=== PATIENT | female | born 1995 | race Caucasian/White ===

== ENCOUNTER → 2017-11-19 04:00 | Observation (INO) ==
[2017-11-19 02:16] LABS: Bilirubin,Urine Negative (Negative); Blood,Urine Negative (Negative); Clarity,Urine Cloudy (Clear); Color,Urine Yellow (Yellow); Glucose,Urine (UA) Normal (Normal); Ketones,Urine Trace mg/dL (Negative); Leukocyte Esterase,Urine Trace (Negative); Nitrite,Urine Negative (Negative); Protein,Urine Negative (Neg-Trace); Specific Gravity,Urine 1.015 (1.010-1.025); Urobilinogen,Urine Normal (Normal)
[2017-11-19 02:20] LABS: Bacteria,Urine None Seen per hpf (None-Few); Hyaline Casts,Urine None Seen per lpf (None-Few); RBC,Urine 0-3 per hpf (0-3); Squamous Epithelial Cell,Urine Many per lpf (None-Few)
[2017-11-19 02:24] LABS: Amphetamine Screen,Urine Negative ng/mL (Cutoff=1000); Barbiturate Screen,Urine Negative ng/mL (Cutoff=200); Benzodiazepines Screen,Urine Negative ng/mL (Cutoff=200); Cannabinoid Screen,Urine Negative ng/mL (Cutoff = 50); Cocaine Screen,Urine Negative ng/mL (Cutoff= 300); Opiate Screen,Urine Negative ng/mL (Cutoff=300); Phencyclidine Screen,Urine Negative ng/mL (Cutoff=25)
--- NOTE | 2017-11-19 02:41 | OB/GYN Progress Note ---
Date of Encounter: 11/19/17 Time of Encounter: 02:36 - Assessment and Plan (1) Back pain affecting in third trimester Current Visit: Yes Status: Acute Pain: - UA negative for UTI, showed mild dehydration - [place] showed irregular uterine contractions - FHT reactive, accelerations present - encouraged hydration - serial cervix exam, unchanged and patient states back pain is improved and she feels occasional abd. tightening, but no pain or contractions - Pt safe for discharge home, with labor precautions, when to return to triage or call provider. Pt verbalizes understanding. (2) 32 weeks gestation of Current Visit: Yes Status: Acute (3) NST (non-stress test) reactive Current Visit: Yes Status: Acute FHR baseline= 140, accelerations present Subjective - Subjective Principal diagnosis: back pain Interval history: Petty is a 22 y/o female at 32+6 weeks presented to L&D for back pain and contractions. Patient states that her back pain is in in her lumbar region and is constant. She has had constant pain for the last 2 days with intermittent worsening of pain for about 30 seconds but not frequent. Patient is concerned that she is in labor. No hx of kidney stones. Denies sexual intercourse within the last 48 hrs. Denies fevers, chills, N/V, dysuria, changes in vision, PEREZ. No complications. Reports active movement. Denies vaginal bleeding or loss of fluid. Antepartum ROS: movement normal, contractions, no loss of fluid, no vaginal bleeding Objective - Vital Signs Vital Signs: wnl Intake and Output 11/18/17 11/18/17 11/19/17 15:59 23:59 07:59 Other: Weight 81.2 kg Patient Weight 11/19/17 23:59 Weight 81.2 kg - Exam FHR: category 1 FHR comments: FHR [id number] Auscultation: bilateral: normal Abdomen: Present: normal appearance, soft Uterus: Present: normal, firm Cervical dilation: 1cm Cervix effacement: thick station: high - Labs Labs: Abnormal lab results Urine Clarity Cloudy (Clear) A 11/19/17 02:12 Urine Ketones Trace mg/dL (Negative) H 11/19/17 02:12 Ur Leukocyte Esterase Trace (Negative) H 11/19/17 02:12 Urine Microscopic WBC 5-15 per hpf (0-3) H 11/19/17 02:12 Ur Squamous Epith Cells Many per lpf (None-Few) H 11/19/17 02:12
== END | disposition home or self-care (01) ==
LOC: 1NENULAB
PROVIDERS: ADMIT Obstetrics & Gynecology; ATTEND Obstetrics & Gynecology

== ENCOUNTER 2018-01-02 08:24 | Inpatient (IN) ==
[~2018-01-02 08:24] MED LIST: *HR* Nalbuphine 20 MG/ML AMPUL IVP PRN; Famotidine 20 MG/2 ML VIAL IVP PRN; Lidocaine 1% 20 ML MDV INFILT PRN; Metoclopramide 10 MG/2 ML VIAL IVP PRN; Naloxone 0.4 MG/ML INJ IVP PRN; Ondansetron 4 MG/2 ML VIAL IVP PRN
[2018-01-02] MEDS ORDERED: Ringers Solution, Lactated 1,000 ML IVC SCH (08:30)
[2018-01-02] MEDS ORDERED: D5% in Lactated Ringers 1,000 ML IVC SCH (08:30)
[2018-01-02 08:40] LABS: Basophils % 0.3 %; Eosinophils # 0.2 K/mcL (0.0-0.6); Eosinophils % 1.1 %; Hematocrit 34.5 % (35.3-44.9); Hemoglobin 11.4 g/dL (11.5-15.4); Lymphocytes % 12.9 %; Mean Corpuscular Hemoglobin 28.4 pg (28.0-33.3); Mean Corpuscular Volume 85.8 fL (83.0-100.0); Mean Platelet Volume 11.7 fL (9.4-12.4); Monocytes # 1.1 K/mcL (0.0-1.3); Monocytes % 7.2 %; Neutrophils # 11.9 K/mcL (1.6-8.9); Nucleated Red Blood Cells 0.1 /100 WBC (0); Platelet Count 322 K/mcL (140-400); Red Blood Count 4.02 M/mcL (3.82-4.97); Red Cell Distribution Width 13.4 % (11.5-14.5); Segmented Neutrophils % 77.5 %
[2018-01-02] MEDS ORDERED: Oxytocin 20 units/ LR 1000 mL 20 UNIT/1,000 ML BAG IVC ONE (08:59)
[2018-01-02] MEDS ORDERED: Measles/Mumps/Rubella Vacc 0.5 ML VIAL SQ PRN ×2 (10:04→12:42)
[2018-01-02] MEDS ORDERED: Ibuprofen 600 MG TABLET PO PRN ×2 (10:04→12:42)
[2018-01-02] MEDS ORDERED: Acetaminophen 325 MG TABLET PO PRN ×2 (10:04→12:42)
[2018-01-02] MEDS ORDERED: Benzocaine/Menthol 56 GM AEROSOL SPRAY TP PRN (10:04)
[2018-01-02] MEDS ORDERED: Oxytocin 20 units/ LR 1000 mL 20 UNIT/1,000 ML BAG IVC SCH ×2 (10:15→12:45)
--- NOTE | 2018-01-02 10:17 | OB/GYN History & Physical ---
Date of Encounter: 01/02/18 Time of Encounter: 10:08 Assessment and Plan (1) 39 weeks gestation of Current visit: Yes Status: Acute (2) Active labor at term Current visit: Yes Status: Acute 22 yo at 39 weeks gestation presenting for active labor IUP Active labor RH positive GBS negative Maternal/ status reassuring FHR category I on admission SROM Coping well with contractions Plan: Admit to L&D for observation of labor Expectant management Labs - CBC CEFM Anticipate vaginal delivery Dr. Balderrama aware of POC and agrees (3) SROM (spontaneous rupture of membranes) Current visit: Yes Status: Acute History of Present Illness Chief complaint: SROM HPI: Ms. Dove is a 22 year old at 39+1 weeks GA with EDB of 01/09/2018. She presents in active labor with report of SROM with clear fluid at 0725 this morning. She denies PEREZ, visual changes, vaginal bleeding. Endorses good FM, contractions, and LOF. Her course has been uncomplicated. course: She has received adequate care from Dr. Monzon. records are available in her chart and have been reviewed. a Labs - O+ GBS negative Hep B negative RPR not reactive Varicella immune Rubella immune HIV negative Past Med Surg Social Fam HX - Past Medical History Medical history: no medical history Psychiatric history: depression - Past Surgical History Surgical History: no surgical history - Social History Smoking Status: Current every day smoker Smokeless Tobacco Status: No Alcohol use: none Drug use: none - Family History Mother Adopted: [place]: Aliya Dove Family Member Ethnicity: Non- Living Status: Still Living Hx Family Cardiac Disorders: Yes (HTN) Hx Family Respiratory Disorders: No Hx Family Cancer: No Hx Family GI Disorders: No Hx Family Endocrine Disorder: No Hx Family Neuromuscular Disorders: No Hx Family Neurologic Disorders: No Hx Family HEENT Disorders: No Hx Family Autoimmune Disorders: No Obstetrical History - Pregnancies : 2 Para: 1 Term: 1 : 0 Ab's: 0 Livin Medications and Allergies Pnv Plus Multivit Tab 1 tab PO DAILY 11/19/17 [History] 3 Allergy/AdvReac Type Severity Reaction Status Date / Time No Known Allergies Allergy Verified 05/17/16 01:06 Review of System OB All systems PM: reviewed and no additional remarkable complaints except as stated Exam - Constitutional Constitutional: well developed, well nourished, no acute distress, average body habitus - HEENT HEENT: PERRL, Normocephaly, Mucus Membranes Moist - Neck Neck exam: full ROM, lymphadenopathy - Lungs Respiratory exam: CTAB - Cardiovascular Cardiovascular exam: RRR, +S1, +S2 - Breasts Breast: bilateral: normal - Abdomen Abdomen: Present: bowel sounds normal, gravid, non tender - Extremities Extremities exam: pedal edema, radial pulses palpable and symmetrical Deep Tendon Reflex Grade: 2+ Normal - Vulva Vulva: bilateral: normal - Vagina Vagina: Present: normal moisture - Cervix Dilation: 9 (anterior lip) Effacement: 100 Station: +1 - Uterus Uterus exam: Present: normal size, normal contour - Anus/Rectum Anus/Rectum: Present: normal perianal skin Results Result Diagrams: 01/02/18 08:20 Abnormal lab results WBC 15.4 K/mcL (4.3-11.1) H 01/02/18 08:20 Hgb 11.4 g/dL (11.5-15.4) L 01/02/18 08:20 Hct 34.5 % (35.3-44.9) L 01/02/18 08:20 Neutrophils # 11.9 K/mcL (1.6-8.9) H 01/02/18 08:20 Nucleated RBCs/100 WBC 0.1 /100 WBC (0) H 01/02/18 08:20 All other labs normal. - VTE Reasons for not Prescribing Prophylaxis: Treatment not Indicated - Low risk for VTE
--- NOTE | 2018-01-02 10:32 | OB/GYN Procedure Note ---
Delivery - Delivery Date: 01/02/18 Provider: Amy Varma Intrapartum events: precipitous labor- <3hr Delivery induction: none Delivery monitor: external FHT, external uterine Anesthesia: none Estimated Blood Loss: 100 - Infant (s) Infant A Infant Delivery Date: 01/02/18 Infant Delivery Time: 09:49 Presentation: vertex Position: VERENICE Route of delivery: Gender: Female Viability: Viable Pounds: 8 Ounces: 12 Weight Gram: 3.975 kg at 1 minute: 8 at 5 mins: 9 Shoulder Dystocia: not encountered Specimens collected: cord blood Placenta: spontaneous Cord: 3 umbilical vessels - Repair Episiotomy: none Laceration Description: None - Complications Delivery complications: none Delivery comments: This is a 22 yo G2 now P2002 who was admitted for active labor. She progressed spontaneously to the second stage of labor. She pushed for 5 minutes. She delivered a viable female infant, VERENICE, over an intact perineum. The mouth and nares were bulb suctioned on the perineum. No shoulder dystocia or nuchal cord were encountered. scores were 8 at 1 minute and 9 at 5 minutes. The placenta delivered (Baird) spontaneously, intact with a 3-vessel cord. Inspection revealed an intact perineum. EBL was 100mL. Placenta and umbilical artery gases were not sent. There were no complications during the procedure. Mom and baby are [id number] following delivery. Dr. Balderrama was present for the entire delivery. - Disposition Mom disposition: stable in LDR Tiro disposition: stable in LDR - Comments Comments: I was present for the delivery of and placenta and available throughout. Mesha Balderrama DO
[2018-01-03 08:39] VITALS: BP 120/74
[2018-01-03] MEDS ORDERED: Prenatal Vit/FA 1 EACH TABLET PO SCH ×2 (09:00)
--- NOTE | 2018-01-03 13:00 | Discharge Summary ---
Date of Encounter: 01/03/18 Time of Encounter: 12:57 - Discharge Diagnosis (1) Vaginal delivery Priority: Primary Status: Acute Comments: Pain all managed on oral pain medications, tolerating regular diet, breast- feeding, patient desires discharge - Discharge Medications Prescriptions: Ibuprofen [Motrin] 600 mg PO Q6HR PRN #60 tablet PRN Reason: Cramping Docusate [Colace] 100 mg PO BID #60 capsule Home Medications: Breast Pump [BREAST PUMP] 1 each .ROUTE AD #1 each 01/03/18 [Rx] Docusate [Colace] 100 mg PO BID #60 capsule 01/03/18 [Rx] Ibuprofen [Motrin] 600 mg PO Q6HR PRN #60 tablet 01/03/18 [Rx] Vit/FA 1 each PO DAILY tablet 01/03/18 [Rx] Allergies/Adverse Reactions: 3 Allergy/AdvReac Type Severity Reaction Status Date / Time No Known Allergies Allergy Verified 05/17/16 01:06 Data Procedures and tests throughout hospitalization: Laboratory Tests 01/02/18 08:20 WBC 15.4 H RBC 4.02 Hgb 11.4 L Hct 34.5 L MCV 85.8 MCH 28.4 MCHC 33.0 RDW 13.4 Plt Count 322 MPV 11.7 Immature Gran % 1.0 Seg Neutrophils % 77.5 Lymphocytes % 12.9 Monocytes % 7.2 Eosinophils % 1.1 Basophils % 0.3 Neutrophils # 11.9 H Lymphocytes # 2.0 Monocytes # 1.1 Eosinophils # 0.2 Basophils # 0.0 Nucleated RBCs/100 WBC 0.1 H Date of admission: 01/02/18 08:24 Primary care physician: PCP NONE Consults: 01/02/18 12:42 Consult to [employer] [CONS] Routine Comment: Vaginal delivery, consult needed Discharging clinician: Erika Thomson Anticipated date of discharge: 01/03/18 - Patient Status Disposition: Home, Self-Care Condition: Good Functional capacity at discharge: independent ambulation Overall status at discharge: patient is back to baseline - Discharge Instructions Follow Up With: NONE,PCP [Primary Care Provider] - - Diet and Activity Activity: resume usual activities as tolerated Diet: regular diet Hospital Course Reason for admission: active labor Delivery: Episiotomy: none Laceration: none Other procedures: none complications: none Discharge diagnosis: IUP at term delivered [place] baby: female Hospital course: Delivery - Delivery Date: 01/02/18 Provider: Amy Varma Intrapartum events: precipitous labor- <3hr Delivery induction: none Delivery monitor: external FHT, external uterine Anesthesia: none Estimated Blood Loss: 100 - (s) A Infant Delivery Date: 01/02/18 Delivery Time: 09:49 Presentation: vertex Position: VERENICE Route of delivery: Gender: Female Viability: Viable Pounds: 8 Ounces: 12 Weight Gram: 3.975 kg at 1 minute: 8 at 5 mins: 9 Shoulder Dystocia: not encountered Specimens collected: cord blood Placenta: spontaneous Cord: 3 umbilical vessels - Repair Episiotomy: none Laceration Description: None - Complications Delivery complications: none Delivery comments: This is a 22 yo G2 now P2002 who was admitted for active labor. She progressed spontaneously to the second stage of labor. She pushed for 5 minutes. She delivered a viable female infant, VERENICE, over an intact perineum. The mouth and nares were bulb suctioned on the perineum. No shoulder dystocia or nuchal cord were encountered. scores were 8 at 1 minute and 9 at 5 minutes. The placenta delivered (Baird) spontaneously, intact with a 3-vessel cord. Inspection revealed an intact perineum. EBL was 100mL. Placenta and umbilical artery gases were not sent. There were no complications during the procedure. Mom and baby are [id number] following delivery. Dr. Balderrama was present for the entire delivery. - Disposition Mom disposition: stable in PP and appropriate for discharge. Time Attestation: Total time spent providing and/or coordinating discharge services: Exam - Constitutional Vitals: Temp Pulse Resp BP Pulse Ox 97.7 F 83 16 120/74 98 01/03/18 08:15 01/03/18 08:15 01/03/18 08:15 01/03/18 08:15 01/03/18 08:15 General appearance IM: A&O X 3 - Respiratory Respiratory exam: Present: CTAB - Cardiovascular Cardiovascular exam IM: Present: RRR - GI/Abdominal GI/Abdominal exam IM: normal bowel sounds, soft - Uterine Tone: Firm Uterus Position: 1 Finger Below Umbilicus - Extremities Exam Extremities exam IM: Present: full ROM, normal capillary refill - Neurological Exam Neurological exam: normal gait, oriented X3 - Psychiatric Additional comments: reports good mood.
== END 2018-01-03 15:40 | disposition home or self-care (01) | DRG 775 ==
LOC: 1NENULAB → 1NENUOBS 12:25
PROVIDERS: ADMIT Obstetrics & Gynecology; ATTEND Obstetrics & Gynecology

== ENCOUNTER 2019-11-02 04:04 | Inpatient (IN) ==
[2019-11-02 05:18] LABS: Bilirubin,Urine Small (Negative); Blood,Urine Moderate (Negative); Clarity,Urine Cloudy (Clear); Color,Urine Dark Yellow (Yellow); Glucose,Urine (UA) Normal (Normal); Ketones,Urine Negative (Negative); Leukocyte Esterase,Urine Negative (Negative); Nitrite,Urine Negative (Negative); PH,Urine 5.5 pH Units (5.0-8.0); Protein,Urine Trace mg/dL (Neg-Trace); Specific Gravity,Urine 1.028 (1.010-1.025); Urobilinogen,Urine Normal (Normal)
[2019-11-02 05:21] LABS: Bacteria,Urine Few per hpf (None-Few); Hyaline Casts,Urine Few per lpf (None-Few); Squamous Epithelial Cell,Urine Many per lpf (None-Few)
[2019-11-02 05:24] LABS: Basophils # 0.1 K/mcL (0.0-0.2); Basophils % 0.5 %; Eosinophils # 0.2 K/mcL (0.0-0.6); Eosinophils % 1.3 %; Hematocrit 42.9 % (35.3-44.9); Hemoglobin 15.4 g/dL (11.5-15.4); Immature Granulocytes % 0.3 % (0-4); Lymphocytes # 4.3 K/mcL (0.6-4.6); Lymphocytes % 28.5 %; Mean Corpuscular HGB Conc 35.9 g/dL (31.6-35.5); Mean Corpuscular Hemoglobin 31.5 pg (28.0-33.3); Mean Corpuscular Volume 87.7 fL (83.0-100.0); Mean Platelet Volume 11.4 fL (9.4-12.4); Monocytes # 1.1 K/mcL (0.0-1.3); Neutrophils # 9.3 K/mcL (1.6-8.9); Platelet Count 331 K/mcL (140-400); Red Blood Count 4.89 M/mcL (3.82-4.97); Red Cell Distribution Width 12.2 % (11.5-14.5); Segmented Neutrophils % 62.4 %; White Blood Count 14.9 K/mcL (4.3-11.1)
[2019-11-02 05:32] LABS: Amphetamine Screen,Urine Negative ng/mL (Cutoff=1000); Barbiturate Screen,Urine Negative ng/mL (Cutoff=200); Benzodiazepines Screen,Urine Negative ng/mL (Cutoff=200); Cannabinoid Screen,Urine Negative ng/mL (Cutoff = 50); Cocaine Screen,Urine Negative ng/mL (Cutoff= 300); Opiate Screen,Urine Positive ng/mL (Cutoff=300); Phencyclidine Screen,Urine Negative ng/mL (Cutoff=25)
[2019-11-02 05:38] LABS: Acetaminophen < 10 mcg/mL (10-20); BUN/Creatinine Ratio 10 (6-26); Blood Urea Nitrogen 7 mg/dL (6-20); Calcium 9.9 mg/dL (8.6-10.3); Carbon Dioxide 23 mEq/L (23-29); Chloride 103 mEq/L (98-107); Ethanol < 10 mg/dL (Less than 10); Glucose 106 mg/dL (70-105); Osmolality,Calculated 286 (280-300); Potassium 3.3 mEq/L (3.5-5.1); Salicylate < 2.5 mg/dL (15.0-30.0); Sodium 139 mEq/L (136-145); eGFR For African Americans > 60 (> 60); eGFR For Non-African Americans > 60 (> 60)
[2019-11-02] MEDS ORDERED: Haloperidol Lactate 5 MG/ML VIAL IM ONE (08:42)
[2019-11-02] MEDS ORDERED: *HR* LORazepam 2 MG/ML VIAL IM ONE (08:42)
[2019-11-02] MEDS ORDERED: Acetaminophen 325 MG TABLET PO PRN (11:01)
[2019-11-02] MEDS ORDERED: Haloperidol Lactate 5 MG/ML VIAL IM PRN (11:01)
[2019-11-02] MEDS ORDERED: *HR* LORazepam 2 MG/ML VIAL IM PRN (11:01)
[2019-11-02] MEDS ORDERED: MOM Conc 10 ML UD.LIQ PO PRN (11:01)
[2019-11-02] MEDS ORDERED: *HR* LORazepam 1 MG TABLET PO PRN (11:01)
[2019-11-02] MEDS ORDERED: cloNIDine HCl 0.1 MG TABLET PO PRN (12:01)
[2019-11-02] MEDS ORDERED: Ondansetron ODT 4 MG TAB.RAPDIS SL PRN (12:02)
[2019-11-02] MEDS ORDERED: Baclofen 10 MG TABLET PO PRN (12:03)
[2019-11-02] MEDS: Nicotine 21 MG PATCH.TD24 TD SCH (13:31)
[2019-11-02] MEDS: hydrOXYzine pamoate 25 MG CAPSULE PO PRN (22:46)
[2019-11-02] MEDS: traZODone 50 MG TABLET PO PRN (22:48)
[2019-11-03] MEDS: Nicotine 21 MG PATCH.TD24 TD SCH (11:49)
[2019-11-03] MEDS: Ibuprofen 600 MG TABLET PO PRN (17:35)
[2019-11-03] MEDS: hydrOXYzine pamoate 25 MG CAPSULE PO PRN ×2 (17:35→22:04)
[2019-11-03] MEDS: traZODone 50 MG TABLET PO PRN (22:04)
[2019-11-04] MEDS: Nicotine 21 MG PATCH.TD24 TD SCH (08:34)
[2019-11-04] MEDS: hydrOXYzine pamoate 25 MG CAPSULE PO PRN (21:06)
[2019-11-04] MEDS: traZODone 50 MG TABLET PO PRN (21:06)
[2019-11-04] MEDS: Ibuprofen 600 MG TABLET PO PRN (21:06)
[2019-11-05 09:01] VITALS: BP 117/78
[2019-11-05] MEDS: Nicotine 21 MG PATCH.TD24 TD SCH (09:08)
== END 2019-11-05 12:12 | disposition other institution (70) | DRG 885 ==
LOC: EMEROOARM 04:04 → 1ANU 09:05
PROVIDERS: ADMIT Psychiatry & Neurology Forensic Psychiatry; ATTEND Psychiatry & Neurology Forensic Psychiatry